=== PATIENT | male | born 1970 | race African-American/Black ===

== ENCOUNTER 2018-06-03 10:11 | Emergency (ER) | payer BC ==
[~2018-06-03] VITALS: Ht 182.9 cm; Wt 77.7 kg
[2018-06-03 10:18] VITALS: Ht 182.9 cm; Wt 77.7 kg
--- NOTE | 2018-06-03 13:57 | ERD ---
ER Documentation Chief Complaint Chief Complaint pain on coccyx area/lower back s/p fell on Thursday and landed on his sacral HPI 48-year-old male presents with pain in his coccyx after falling off a roof 1 week ago. He is improving although he needs a note from his area of housing stating that he has no significant injury. He is able to ambulate without pain and does not even need to take any pain medication. He is here for clearance to return to his housing where the injury occurred. First, chest pain, head injury, additional injuries due to his fall 1 week ago. ROS All systems reviewed and are negative except as per history of present illness. Allergies Allergies: Coded Allergies: No Known Allergy (Unverified , 06/03/18) FmHx Family History: No diabetes, No coronary disease, No other Physical Exam Vitals Vital Signs Date Temp Pulse Resp B/P (MAP) Pulse Ox O2 O2 Flow FiO2 Time Delivery Rate 06/03/18 98.6 104 18 187/74 97 10:18 (111) Physical Exam Const: No acute distress Head: Atraumatic Eyes: Normal Conjunctiva ENT: Normal External Ears, Nose and Mouth. Neck: Full range of motion. No meningismus. Resp: Clear to auscultation bilaterally Cardio: Regular rate and rhythm, no murmurs Abd: Soft, non tender, non distended. Normal bowel sounds Skin: No petechiae or rashes Back: No midline or flank tenderness. Minimal tenderness over the coccyx without deformities, bleeding, erythema, fluctuance. Ext: No cyanosis, or edema Neur: Awake and alert. Amatory without deficits, weakness. Psych: Normal Mood and Affect Procedures/MDM Patient presents with pain in the coccyx after falling a week ago which is improving. X-rays deferred given minimal tenderness and management will not be changed despite x-ray. Signs and symptoms do not suggest pelvic or hip fracture there is no deficits, signs of head injury, different complications. We discharged home with further observation and recommendations for Tylenol for pain. The patient was stable with no new complaints during the ER course. Clinically, there is no current evidence to suggest meningitis, sepsis, acute abdomen, pneumonia, stroke, acute coronary syndrome, pulmonary embolism, aortic dissection or any other emergent condition appearing to require further evaluation or hospitalization. Patient counseled regarding my diagnostic impression and care plan. Prior to discharge all questions answered. Pt agrees with treatment plan and understands strict return precautions. Pt is instructed to follow up with primary care provider within 24-48 hours. Precautionary instructions provided including instructions to return to the ER if not improving or for any worsening or changing symptoms or concerns. Departure Diagnosis: Primary Impression: Fall with no significant injury Encounter type: initial encounter Qualified Codes: W19.XXXA - Unspecified fall, initial encounter Additional Impression: Coccyalgia Condition: Stable Patient Instructions: Contusion, Coccyx/Sacrum Additional Instructions: Likely sprain of coccyx that is improving. Recheck for fevers, worsening pain, new worsening symptoms. Okay to take Tylenol for pain. MARCELLA FERNANDO MD Jun 03, 2018 13:57
[2018-06-03] MEDS ORDERED: IBUP-1542 PO (14:17)
[2018-06-03 14:20] VITALS: BP 131/86; PULSE 75; RESP 16
== END 2018-06-03 14:31 | disposition home or self-care (01) ==
LOC: FTE 10:11
DX: M53.3 Sacrococcygeal disorders, not elsewhere classified (principal)
CPT/HCPCS: 99282